=== PATIENT | male | born 1950 | race Caucasian/White ===

== ENCOUNTER 2016-08-27 11:39 | Outpatient (RCR) | payer MEDICARE, OTHER ==
[~2016-08-27 11:39] MED LIST: ALDACTONE 25MG25 M1 PO; ATIVAN 1MG T1 MG/TAB PO; ATROVENT INHALE14 GM IH; COREG12.5 MG PO; COZAAR 50MG50 MG/TAB PO; EXELON9.5 MG/24 TD; FLOMAX 0.40.4 MG/CAP PO; GLUCOPHAGE1000 MG PO; KLONOPIN 1MG1 MG PO; KLOR-CON 1010 MEQ PO; LANOXIN 0.120.125 MG PO; LASIX 20MG TABL20 MG PO; LEVEMIR100 U/ML SQ; LIDODERM 5% PATC1 EA TP; NUVIGIL250 MG PO; PREDNISONE10 MG PO; PREDNISONE20 MG PO; SYMMETREL100 MG PO; VENTOLIN0.09 MG IH; VITAMIN D 50,1.25 MG PO; VOLTAREN GEL 1%1 TU TP; ZOCOR 40MG40 MG PO
== END 2016-09-12 14:35 | disposition home or self-care (01) ==
LOC: COL.CR 11:39
DX: Z48.812 Encounter for surgical aftercare following surgery on the circulatory system (principal); Z95.2 Presence of prosthetic heart valve